=== PATIENT | male | born 1970 | race Caucasian/White ===

== ENCOUNTER → 2023-11-28 | Day surgery (SDC) | payer OTHER ==
[~2023-11-28] MED LIST: Ketamine 200 MG/20 ML MDV ONE; Phenylephrine 1% 10 MG/ML SDV ONE; Propofol 200 MG/20 ML SDV ONE; fentaNYL 50 MCG/ML SDV ONE
[2023-11-28] MEDS: Lactated Ringers 1,000 ML IV SCH (13:19)
[2023-11-28 14:38] VITALS: BP 102/66; PULSE 56
== END ==
LOC: CC.SDS 13:02
PROVIDERS: ATTEND Family Medicine
DX: Z12.11 Encounter for screening for malignant neoplasm of colon (principal); K63.5 Polyp of colon; K57.30 Diverticulosis of large intestine without perforation or abscess without bleeding; N52.9 Male erectile dysfunction, unspecified; N40.1 Benign prostatic hyperplasia with lower urinary tract symptoms; R53.1 Weakness; Z79.899 Other long term (current) drug therapy
CPT/HCPCS: 00811; J2371; J2704; J3010; J3490; J7120